=== PATIENT | female | born 1975 | race Two or more races ===

== ENCOUNTER 2017-01-24 20:32 | Emergency (ER) | payer OTHER ==
[~2017-01-24 20:32] MED LIST: ATARAX PO; BACTRIM DS TABL1 TA1 PO; CIPRO PO; IBUPROFEN800 MG PO; IRON1 TAB PO; MEDROL4 MG/DOSE- PO; NO MEDICATIONS; PHENERGAN25 M1 PO; PREDNISONE50 MG PO; PRENATAL1 TA1 PO; PRILOSEC20 MG PO; PYRIDIUM PO; ROBAXIN500 MG PO; VOLTAREN75 MG PO; ZOFRAN ODT4 MG PO; ZOFRAN PO; ZOFRANODT PO
[2017-01-24] MEDS ORDERED: NO MEDICATIONS (20:55)
[2017-01-24 22:40] LABS: URINE SOURCE CLEAN CATCH
[2017-01-24 22:42] LABS: MICRO INDICATED? YES; URINE APPEARANCE HAZY; URINE BILIRUBIN NEG (NEG); URINE BLOOD TRACE-INTACT (NEG); URINE COLOR YELLOW; URINE GLUCOSE NEG (NORM); URINE KETONE NEG (NEG); URINE LEUKOCYTE ESTERASE 2+ (NEG); URINE NITRATE NEG (NEG); URINE PROTEIN NEG (NEG); URINE UROBILINOGEN 0.2 MG/DL (NORM)
[2017-01-24 22:44] LABS: CULTURE INDICATED? YES; URINE BACTERIA 1+ (NEG); URINE MUCUS PRESENT; URINE RBC NEG /[HPF] (0-2); URINE SQUAMOUS EPITHELIAL CELL MODERATE /[HPF]; URINE WBC 25-50 /[HPF] (0-5)
[2017-01-25 00:09] LABS: BASOPHIL% 0.2 % (0-2.5); EOSINOPHIL% 0.5 % (0.0-7.0); HEMATOCRIT 35.6 % (35.0-45.0); HEMOGLOBIN 11.9 gm/dL (12.0-16.0); LYMPHOCYTE# 3.3 X10e3 (1.0-3.5); LYMPHOCYTE% 35.9 % (17.0-45.0); MEAN CELL VOLUME 81.3 FL (83-96); MEAN CORPUSCULAR HEMOGLOBIN 27.1 PG (28-34); MEAN CORPUSCULAR HGB CONC 33.4 g/dL (30-36); MEAN PLATELET VOLUME 9.8 FL (6.5-11.5); MONOCYTE# 0.6 X10e3 (0-1.0); MONOCYTE% 6.6 % (3.0-12.0); NEUTROPHIL# 5.3 X10e3 (1.5-7.1); NEUTROPHIL% 56.8 % (40-75); PLATELET COUNT 207 X10e3 (140-420); RED BLOOD COUNT 4.38 X10e (3.90-5.30); RED CELL DISTRIBUTION WIDTH 15.3 % (11.0-15.5); WHITE BLOOD COUNT 9.3 X10e3 (4.0-10.5)
[2017-01-25 00:13] LABS: DIFF IND NO
[2017-01-25 00:25] LABS: BILIRUBIN, DIRECT 0.1 mg/dL (0.0-0.2); BILIRUBIN,INDIRECT 0.3 mg/dL (0.0-0.9); BILIRUBIN,TOTAL 0.4 mg/dL (0.2-2.0); CALCIUM SERUM 8.7 mg/dL (8.4-10.2); CREATININE SERUM 0.5 mg/dL (0.6-1.4); GLOM FILT RATE Estimated 118.6 mL/min (>60); POTASSIUM 3.2 mmol/L (3.5-5.1); PROTEIN TOTAL SERUM 7.6 g/dL (6.0-8.3)
== END 2017-01-25 02:15 | disposition home or self-care (01) ==
LOC: SED 20:32
PROVIDERS: Nurse Practitioner
DX: O99.281 Endocrine, nutritional and metabolic diseases complicating pregnancy, first trimester (principal); E87.6 Hypokalemia; O99.89 Other specified diseases and conditions complicating pregnancy, childbirth and the puerperium; R55 Syncope and collapse; R10.9 Unspecified abdominal pain; Z90.49 Acquired absence of other specified parts of digestive tract; Z98.890 Other specified postprocedural states
CPT/HCPCS: 36415; 80048; 80076; 81003; 84702; 84703; 85025; 87086; 99284; J1885; J2405